=== PATIENT | female | born 1995 | race Caucasian/White ===

== ENCOUNTER 2019-03-30 18:22 | Emergency (ER) | payer MEDICAID ==
[~2019-03-30] VITALS: Ht 151.1 cm; Wt 40.9 kg
[~2019-03-30 18:22] MED LIST: DOXY1TAB3 PO; GING250C PO; NAPAOS EACHEYE; PROC25SU30 PR
[2019-03-30 19:36] LABS: URINE HCG NEGATIVE (NEG)
[2019-03-30 19:38] LABS: CLARITY,URINE CLOUDY (Clear); COLOR,URINE YELLOW (Yellow); GLUCOSE, URINE NEGATIVE (Neg); KETONES,URINE NEGATIVE (Neg); LEUKOCYTE ESTERASE ,URINE MODERATE (Neg); NITRITES, URINE POSITIVE (Neg); OCCULT BLOOD,URINE LARGE (Neg); PH,URINE 5.5 (4.8-8.0); PROTEIN,URINE 100 mg/dl (Neg); UROBILINOGEN,URINE 0.2 E.U/dL (0.2-1.0)
[2019-03-30 19:46] LABS: UA COLLECTION TYPE CLN CATCH MIDSTREAM
[2019-03-30 19:47] LABS: BACTERIA,URINE 2+ /HPF (Neg); RBC,URINE 50-100 /HPF (0-2); SQUAMOUS EPITHELIAL CELL,UR FEW /LPF (FEW); WBC,URINE 50-100 /HPF (0-4)
[2019-03-30 19:48] LABS: BASOPHILS % (AUTO) 0.6 % (0-1); EOSINOPHILS # (AUTO) 0.1 X10'3 (0-0.9); EOSINOPHILS % (AUTO) 1.4 % (0-6); HEMOGLOBIN 11.4 g/dl (12.0-16.0); LYMPHOCYTES # (AUTO) 2.3 X10'3 (1.1-4.8); LYMPHOCYTES % (AUTO) 34.4 % (21-51); MEAN CORPUSCULAR HEMOGLOBIN 25.8 PG (27.0-31.0); MEAN CORPUSCULAR HGB CONC 32.6 g/dL (33.0-36.5); MEAN CORPUSCULAR VOLUME 79.3 FL (78-98); MEAN PLATELET VOLUME 7.5 FL (7.4-10.4); MONOCYTES # (AUTO) 0.4 X10'3 (0-0.9); MONOCYTES % (AUTO) 6.5 % (2-12); NEUTROPHILS # (AUTO) 3.7 X10'3 (1.8-7.7); NEUTROPHILS % (AUTO) 57.1 % (42-75); PLATELET COUNT 224 X10'3 (140-440); RED BLOOD COUNT 4.41 X10'6 (4.20-5.60); WHITE BLOOD COUNT 6.6 X10'3 (4.5-11.0)
[2019-03-30] MEDS ORDERED: NITR100C6 PO (20:02)
[2019-03-30 20:15] VITALS: BP 144/67
== END 2019-03-30 20:17 | disposition home or self-care (01) ==
LOC: ER 18:23
DX: N39.0 Urinary tract infection, site not specified (principal); N93.9 Abnormal uterine and vaginal bleeding, unspecified; F41.9 Anxiety disorder, unspecified; Z88.0 Allergy status to penicillin; Z79.899 Other long term (current) drug therapy
CPT/HCPCS: 36415; 81001; 81025; 85025; 99283

== ENCOUNTER 2019-08-27 12:02 | Emergency (ER) | payer MEDICAID ==
[~2019-08-27] VITALS: Ht 149.9 cm; Wt 44.1 kg
[~2019-08-27 12:02] MED LIST changes: +NITR100C6 PO
[2019-08-27] MEDS ORDERED: diphenhydrAMINE 25mg capsule PO ONE (12:45)
[2019-08-27] MEDS ORDERED: LORazepam 1 MG tablet PO ONE (12:45)
[2019-08-27 12:54] VITALS: BP 129/91
== END 2019-08-27 12:55 | disposition home or self-care (01) ==
LOC: ER 12:07
DX: F41.9 Anxiety disorder, unspecified (principal); G43.909 Migraine, unspecified, not intractable, without status migrainosus; F43.10 Post-traumatic stress disorder, unspecified; Z88.1 Allergy status to other antibiotic agents
CPT/HCPCS: 99284; Q0163

== ENCOUNTER 2019-09-19 11:19 | Emergency (ER) | payer MEDICAID ==
[~2019-09-19] VITALS: Ht 149.9 cm; Wt 44.1 kg
[2019-09-19] MEDS ORDERED: metroNIDAZOLE 500mg tablet PO ONE (12:45)
[2019-09-19] MEDS ORDERED: azithromycin 250mg tablet PO ONE (12:45)
[2019-09-19] MEDS ORDERED: CefTRIAXone 250MG IM Kit w/LIDOcaine IM ONE (12:45)
[2019-09-19] MEDS ORDERED: diphenhydrAMINE 25mg capsule PO ONE (12:45)
[2019-09-19] MEDS ORDERED: LACT1CAP57 PO (12:52)
[2019-09-19] MEDS ORDERED: DOXY100C76 PO (12:52)
[2019-09-19 12:57] LABS: PREOP URINE HCG NEGATIVE (NEGATIVE)
[2019-09-19 13:12] LABS: CLARITY,URINE CLOUDY (Clear); COLOR,URINE YELLOW (Yellow); GLUCOSE, URINE NEGATIVE (Neg); KETONES,URINE NEGATIVE (Neg); LEUKOCYTE ESTERASE ,URINE SMALL (Neg); NITRITES, URINE POSITIVE (Neg); OCCULT BLOOD,URINE LARGE (Neg); PH,URINE 8.5 (4.8-8.0); PROTEIN,URINE 30 mg/dl (Neg); UROBILINOGEN,URINE 0.2 E.U/dL (0.2-1.0)
[2019-09-19 13:14] LABS: UA COLLECTION TYPE CLN CATCH MIDSTREAM
[2019-09-19 13:29] VITALS: BP 119/80
[2019-09-19 13:31] LABS: MUCUS STRANDS MODERATE /LPF (Neg); SQUAMOUS EPITHELIAL CELL,UR MODERATE /LPF (FEW)
[2019-09-19 13:32] LABS: BACTERIA,URINE 2+ /HPF (Neg); RBC,URINE TNTC /HPF (0-2); WBC,URINE 30-50 /HPF (0-4)
[2019-09-21 06:10] LABS: RPR Non Reactive (Non Reactive)
== END 2019-09-19 13:29 | disposition home or self-care (01) ==
LOC: ER 11:19
DX: A64 Unspecified sexually transmitted disease (principal); G43.909 Migraine, unspecified, not intractable, without status migrainosus; F41.9 Anxiety disorder, unspecified; Z88.1 Allergy status to other antibiotic agents; Z79.899 Other long term (current) drug therapy
CPT/HCPCS: 36415; 81001; 81025; 86592; 87077; 87088; 87186; 87491; 87591; 96372; 99284; J0696; Q0163; J3490

== ENCOUNTER 2020-05-03 18:28 | Emergency (ER) | payer MEDICAID ==
[~2020-05-03] VITALS: Ht 149.9 cm; Wt 40.9 kg
[~2020-05-03 18:28] MED LIST changes: +LACT1CAP57 PO
[2020-05-03] MEDS ORDERED: hydrOXYzine 25 MG tablet PO ONE (20:35)
[2020-05-03] MEDS ORDERED: HYDR-3686 PO (20:35)
[2020-05-03 20:38] VITALS: BP 134/103
== END 2020-05-03 20:49 | disposition home or self-care (01) ==
LOC: ER 18:28
DX: F41.0 Panic disorder [episodic paroxysmal anxiety] (principal); F32.9 Major depressive disorder, single episode, unspecified; F12.90 Cannabis use, unspecified, uncomplicated; Z88.0 Allergy status to penicillin; Z79.899 Other long term (current) drug therapy
CPT/HCPCS: 99281; Q0177

== ENCOUNTER 2023-11-01 07:51 | Outpatient (CLI) | payer MEDICAID | END 2023-11-01 23:59 | disposition home or self-care (01) | LOC: RAD 07:51 | PROVIDERS: ATTEND Family Medicine | DX: N13.30 Unspecified hydronephrosis (principal); R31.9 Hematuria, unspecified | CPT/HCPCS: 76770 ==